=== PATIENT | female | born 1950 | race Caucasian/White ===

== ENCOUNTER 2016-10-15 06:32 | Day surgery (SDC) | payer MEDICARE, OTHER ==
[~2016-10-15 06:32] MED LIST: BUPIVACAINE HCL 0.5 % INJ/PF 30 ML SDV ONE; CEFAZOLIN 1 GM/D5W RTU 1 GM/50 ML RTUPB IV PRN; DIPHENHYDRAMINE HCL 50 MG/ML VIAL ONE; FENTANYL CITRATE INJ/PF 100 MCG/2 ML AMPUL ONE; KETOROLAC TROMETHAMINE 60 MG/2 ML SDV ONE; LIDOCAINE 2% INJ (20 MG/ML) 20 ML MDV ONE; LIDOCAINE 2% INJ-PF (20 MG/ML) 10 ML AMPUL ONE; MIDAZOLAM 2 MG/2 ML INJ ONE; PROPOFOL INJ 200 MG/20 ML VIAL IV ONE
[2016-10-15] MEDS ORDERED: SUCCINYLCHOLINE CHLORIDE INJ 200 MG/10 ML VIAL ONE (06:44)
[2016-10-15] MEDS ORDERED: BUPIVACAINE HCL 0.5 % INJ/PF 30 ML SDV ONE (07:08)
[2016-10-15] MEDS ORDERED: POLYMYXIN B SULFATE INJ 500000 UNIT VIAL ONE (07:08)
[2016-10-15] MEDS ORDERED: LIDOCAINE 2% INJ (20 MG/ML) 20 ML MDV ONE (07:08)
[2016-10-15] MEDS ORDERED: NORMAL SALINE INJ/PF 0.9% 10 ML SDV ONE (07:09)
[2016-10-15] MEDS ORDERED: BACITRACIN INJ 50,000 UNIT VIAL ONE (07:09)
[2016-10-15] MEDS ORDERED: ONDANSETRON HCL INJ/PF 4 MG/2 ML SDV ONE (07:36)
[2016-10-15] MEDS ORDERED: BUPIVACAINE INJ/PF LIPOSOME/PF 266 MG/20 ML SDV ONE ×2 (07:37→09:39)
[2016-10-15] MEDS ORDERED: FENTANYL CITRATE INJ/PF 100 MCG/2 ML AMPUL ONE (07:37)
--- NOTE | 2016-10-15 10:54 | [facility] DISCHARGE SUMMARY E ---
[facility] Discharge Summary NAME: PATRICE FLOWERS AGE: 66Y ADMITTED: 10/15/2016 DISCHARGED: 10/15/2016 SURGICAL PROCEDURES: 1. Correction of bunion by Luther osteotomy with internal screw fixation, left foot. 2. Marvel osteotomy with internal screw fixation, second metatarsal left foot. 3. Arthroplasty at the proximal interphalangeal joint, second digit left foot. POSTOPERATIVE DIAGNOSES: 1. Hallux abductovalgus, left foot. 2. Metatarsalgia, second metatarsal left foot. 3. Hammertoe deformity, second digit left foot. SURGEON: Armand Maria DPM SITE DIRECTOR: Ford Hart DPM Patient was admitted to [facility] with a chief complaint of a painful bunion and a second toe that stuck up and hit the top of her shoes. The patient said she has had these deformities for a number of years, that the pain was progressively getting worse, and that she knew it was about time she did something about it. The patient desired to have these problems surgically corrected. She underwent the above surgical procedures without any complications and was transferred to the recovery room. She was discharged with a surgical shoe and ice pack postoperative instructions, including no weight bearing on the surgical foot, and postoperative prescriptions for Dilaudid 4 mg #48, Phenergan 25 mg #24, and cephalexin 500 mg #4. She was given a followup appointment in the doctor's office in 1 week and the patient was discharged from [facility]. DICTATING PHYSICIAN: ARMAND MARIA D.P.M. [id number] PHY#: [id number] ID: [id number] JOB#: [id number] ACCT: [id number] cc:ARMAND MARIA DPM > DELVIN
--- NOTE | 2016-10-15 11:53 | [facility] OPERATIVE REPORT E ---
[facility] Operative Report NAME: PATRICE FLOWERS AGE: 66Y DATE OF SURGERY: 10/15/2016 ROOM: PREOPERATIVE DIAGNOSES: 1. Hallux abductovalgus, left foot. 2. Metatarsalgia, second metatarsal, left foot. 3. Hammertoe deformity, second digit, left foot. POSTOPERATIVE DIAGNOSIS: 1. Hallux abductovalgus, left foot. 2. Metatarsalgia, second metatarsal, left foot. 3. Hammertoe deformity, second digit, left foot. SURGICAL PROCEDURE: 1. Correction of bunion by Luther osteotomy with internal screw fixation, left foot. 2. Marvel osteotomy with internal screw fixation, second metatarsal, left foot. 3. Arthroplasty at the proximal interphalangeal joint, second digit, left foot. SURGEON: ARMAND WILL DPM CHILD & ADOLESCENT PSYCHIATRIST: Ford Hart DPM ANESTHESIA: General. PROCEDURE: Following induction of general anesthesia the left foot and leg were prepped and draped in the usual sterile manner. A pneumatic tourniquet was placed around the left ankle and inflated to 250 mmHg after exsanguination of the limb via Esmarch bandage. The left foot was then locally anesthetized utilizing approximately 17 mL of a 50/50 mixture of 0.5% Marcaine and 1% Xylocaine. The following surgical procedures were then performed: 1. Correction of bunion by Luther osteotomy with internal screw fixation, left foot: Attention was directed to the dorsal aspect of the first metatarsophalangeal joint of the left foot where an approximately 6-cm dorsolinear incision was made. The incision was deepened via sharp dissection. All bleeders were clamped and then Bovied as necessary for the purposes of hemostasis. A capsular incision was made in the same manner as the original skin incision and it was made medial to the extensor hallucis longus tendon. When the capsular incision was made it was noted that a gelatinous fluid oozed out of the joint. The capsule was then reflected medially and laterally from the bone. Attention was directed to the first intermetatarsal space. Utilizing blunt dissection, the transverse adductor tendon was identified and sharply incised. Attention was directed back to the medial aspect of the first metatarsal head. Utilizing a [employer] sagittal saw the hypertrophied medial eminence was osteotomized parallel to the long axis of the bone. It was noted there was a small bone cyst at the medial aspect of the bone and another small wedge of bone was removed so that when the osteotomy was performed it would be performed in a good solid bone. It was noted that there was hypertrophied bone along the base of the proximal phalanx. Utilizing a rongeur this hypertrophied lip of bone was removed. It was also noted that there was hypertrophied bone at the dorsal aspect of the first metatarsal head, and this was also removed utilizing a rongeur. Attention was then directed back to the medial aspect of the first metatarsal head, and utilizing a [email or web address] sagittal saw an Luther-type osteotomy was performed with the apex being distal and the wings at an approximately 60-degree angle, one plantar, one dorsal. This was a salnuxb-hcv-akotzoq osteotomy cut. The capital fragment was then distracted, shifted laterally approximately 5 cm and then impacted on the bone. The osteotomy was temporarily fixated utilizing a 0.045 guidewire. The reamer measure was then threaded down the guidewire and a hole was reamed to accept the head of the screw and the length of the screw needed was measured to be a 30-mm cancellous 3.0 screw. An x-ray was taken to make sure that the guidewire was in good position. The distal aspect of the osteotomy was then drilled utilizing a 2-mm drill bit. A 30-mm x 3.0 cancellous screw was then threaded down the guidewire and tightened until the osteotomy was stably fixated and the screw was tight. The guidewire was then removed. An x-ray was taken and it was noted that at least 2 threads of the screw had broken through the plantar cortex and that the first metatarsophalangeal joint was in a more anatomically correct position. The redundant bone on the medial aspect of the first metatarsal was then osteotomized parallel to the long axis of the bone and removed from the wound. The area was then rasped utilizing a [email or web address] Cross Cut rasp. The area was then flushed with copious amounts of antibacterial saline solution. Bone wax was then applied to the medial aspect of the first metatarsal and the dorsal aspect of the head of the first metatarsal and the base of the proximal phalanx. The capsule was then coaptated and maintained utilizing simple interrupted sutures of 3-0 Vicryl. The extensor hallucis longus tendon was then tacked medially utilizing simple interrupted sutures of 3-0 Vicryl. The subcutaneous tissue was coaptated and maintained utilizing simple interrupted sutures of 4-0 Vicryl. Exparel was then injected subcutaneously along the length of the incision of the first metatarsal. Then, the skin was coaptated and maintained utilizing horizontal mattress sutures of 5-0 nylon. 2. Marvel osteotomy with internal screw fixation, second metatarsal, left foot: Attention was directed to the dorsal aspect of the second metatarsal of the left foot where an approximately 3-cm dorsolinear incision was made. The incision was deepened via sharp dissection. All bleeders were clamped and Bovied as necessary for the purposes of hemostasis. The extensor digitorum longus tendon was freed from the capsule and retracted laterally. A capsule incision was then made in the same manner as the original skin incision. The capsule was freed medially and laterally from the second metatarsal. The second metatarsal head was inspected. It was noted there was a small erosion in the cartilage of the head of the second metatarsal along the lateral aspect, and this was smoothed utilizing a [employer] Cross Cut rasp. A Marvel osteotomy was then performed. This was made from dorsal distal to plantar proximal. This allowed the head then to shift plantarly and proximally. The redundant bone at the dorsal aspect of the metatarsal was then removed utilizing a rongeur. The osteotomy was then fixated utilizing a 12-mm, 2.0 QuickFix screw. An x-ray was taken. It was noted that the second metatarsal was now in line with the third metatarsal and that the screw was in good position and that the second metatarsophalangeal joint was in a more anatomically correct position. The area was then flushed with copious amounts of antibacterial saline solution. The capsule was then coaptated and maintained utilizing simple interrupted sutures of 3-0 Vicryl. The extensor digitorum longus tendon was then lengthened utilizing a Z-plasty slide and then sutured with 3-0 Vicryl. The subcutaneous tissue was then coaptated and maintained utilizing simple interrupted sutures of 4-0 Vicryl, and the skin was coaptated and maintained utilizing horizontal mattress sutures of 5-0 nylon. This site was also injected with Exparel. 3. Arthroplasty of the proximal interphalangeal joint, second digit, left foot: Attention was directed to the dorsal aspect of the second digit of the left foot where an approximately 2-cm dorsolinear incision was made. The incision was deepened via sharp dissection. All bleeders were clamped and Bovied as necessary for the purposes of hemostasis. The extensor digitorum longus tendon was transversely incised and reflected proximally and distally from the bone. The hypertrophied head of the proximal phalanx was freed from off its soft tissue attachments via sharp dissection. Utilizing a [email or web address] sagittal saw hypertrophied head of the proximal phalanx was osteotomized perpendicular to the long axis of the bone and removed en toto from the wound. The plantar plate was excised utilizing sharp dissection. The area was then flushed with copious amounts of an antibacterial saline solution. The distal flap of the extensor digitorum longus tendon was then sutured over the base of the middle phalanx and sutured into the long flexor tendon utilizing simple interrupted suture of 3-0 Vicryl. The extensor digitorum longus tendon was then coaptated and maintained utilizing simple interrupted sutures of 3-0 Vicryl. The skin was then coaptated and maintained utilizing horizontal mattress sutures of 5-0 nylon. The dry sterile dressing was then applied consisting of Herbert silk, 4 x 4s, Conform, Kerlix and Coban. The pneumatic tourniquet was released. It was noted that all digits were warm and viable, and the patient was transferred to the recovery room. DICTATING PHYSICIAN: ARMAND WILL D.P.M. [id number] PHY#: [id number] ID: [id number] JOB#: [id number] ACCT: [id number] cc:ARMAND WILL DPM > DELVIN
--- NOTE | 2016-10-15 15:33 | RADIOLOGY REPORT (SQ) ---
EXAM DESCRIPTION: FOOT LEFT 2 VIEWS; NO CHG FLUORO COMPLETED DATE/TIME: 10/15/2016 3:14 pm REASON FOR STUDY: LT FOOT BUNIONECTOMY M20.12 HALLUX VALGUS (ACQUIRED), LEFT FOOT M77.42 METATARSA LGIA, LEFT FOOT COMPARISON: None. NUMBER OF VIEWS: Two views. TECHNIQUE: AP and lateral radiographic images acquired of the left foot. RADIATION DOSE: 0.2 seconds total exposure LIMITATIONS: None. FINDINGS: MINERALIZATION: Normal. BONES: Osteotomy changes are seen involving the distal 1st metatarsal. A long cannulated screw is pr esent. There is a screw that passes through the head of the 2nd metatarsal on the AP direction. JOINTS: No effusions. SOFT TISSUES: No soft tissue swelling. No foreign body. OTHER: No other significant finding. IMPRESSION: Surgical changes. TECHNICAL DOCUMENTATION: JOB ID: [id number] [employer]- All Rights Reserved
--- NOTE | 2016-10-15 15:33 | RADIOLOGY REPORT (SQ) ---
EXAM DESCRIPTION: FOOT LEFT 2 VIEWS; NO CHG FLUORO COMPLETED DATE/TIME: 10/15/2016 3:14 pm REASON FOR STUDY: LT FOOT BUNIONECTOMY M20.12 HALLUX VALGUS (ACQUIRED), LEFT FOOT M77.42 METATARSA LGIA, LEFT FOOT COMPARISON: None. NUMBER OF VIEWS: Two views. TECHNIQUE: AP and lateral radiographic images acquired of the left foot. RADIATION DOSE: 0.2 seconds total exposure LIMITATIONS: None. FINDINGS: MINERALIZATION: Normal. BONES: Osteotomy changes are seen involving the distal 1st metatarsal. A long cannulated screw is pr esent. There is a screw that passes through the head of the 2nd metatarsal on the AP direction. JOINTS: No effusions. SOFT TISSUES: No soft tissue swelling. No foreign body. OTHER: No other significant finding. IMPRESSION: Surgical changes. TECHNICAL DOCUMENTATION: JOB ID: [id number] [employer]- All Rights Reserved
== END 2016-10-15 11:34 | disposition home or self-care (01) ==
LOC: SC 06:32
PROVIDERS: ATTEND Podiatrist Foot Surgery
PROC: 0QBP0ZZ Excision of Left Metatarsal, Open Approach (ICD-10-PCS; 2016-10-15)
PROC: 0SRQ0JZ Replacement of Left Toe Phalangeal Joint with Synthetic Substitute, Open Approach (ICD-10-PCS; 2016-10-15)
PROC: 0QSP04Z Reposition Left Metatarsal with Internal Fixation Device, Open Approach (ICD-10-PCS; principal; 2016-10-15 07:30)
DX: M20.12 Hallux valgus (acquired), left foot (principal); M77.42 Metatarsalgia, left foot; M20.42 Other hammer toe(s) (acquired), left foot; Z79.899 Other long term (current) drug therapy
CPT/HCPCS: 28308; 28296; 73620; 28285; C1713 ×2; C1769; J2250; J3490 ×5; J0690; J1200; J1885; J3010; J0330; J2405; J2704; C9290; 01480

== ENCOUNTER → 2017-02-09 | Outpatient (CLI) | payer MEDICARE, OTHER ==
--- NOTE | 2017-02-09 17:21 | RADIOLOGY REPORT (SQ) ---
EXAM DESCRIPTION: CHEST PA/LATERAL COMPLETED DATE/TIME: 02/09/2017 5:15 pm REASON FOR STUDY: ACUTE BRONCHITIS, UNSPECIFIED COMPARISON: None. EXAM PARAMETERS: NUMBER OF VIEWS: two views TECHNIQUE: Digital Frontal and Lateral radiographic views of the chest acquired. RADIATION DOSE: NA LIMITATIONS: none FINDINGS: LUNGS AND PLEURA: No opacities, masses or pneumothorax. No pleural effusion. MEDIASTINUM AND HILAR STRUCTURES: No masses or contour abnormalities. HEART AND VASCULAR STRUCTURES: Heart normal size. No evidence for failure. BONES: No acute findings. HARDWARE: None in the chest. OTHER: No other significant finding. IMPRESSION: NO SIGNIFICANT RADIOGRAPHIC FINDING IN THE CHEST. TECHNICAL DOCUMENTATION: JOB ID: [id number] [employer]- All Rights Reserved
== END ==
LOC: OD 17:03
PROVIDERS: ATTEND Family Medicine Geriatric Medicine
DX: J20.9 Acute bronchitis, unspecified (principal)
CPT/HCPCS: 71020

== ENCOUNTER → 2018-06-21 | Outpatient (CLI) | payer MEDICARE, OTHER ==
[2018-06-21 10:10] LABS: ABSOLUTE BASOPHILS # (AUTO) 0.1 10^3/uL (0.0-0.2); ABSOLUTE EOSINOPHILS # (AUTO) 0.1 10^3/uL (0.0-0.6); ABSOLUTE LYMPHOCYTES (AUTO) 1.2 10^3/uL (0.5-4.7); ABSOLUTE MONOCYTES (AUTO) 0.4 10^3/uL (0.1-1.4); BASOPHILS % (AUTO) 0.8 % (0-2); EOSINOPHILS % (AUTO) 1.5 % (0-6); HEMATOCRIT 43.3 % (36.0-47.0); HEMOGLOBIN 14.9 g/dL (12.0-15.5); LYMPHOCYTES % (AUTO) 18.2 % (13-45); MEAN CORPUSCULAR HEMOGLOBIN 31.1 pg (27.0-33.4); MEAN CORPUSCULAR HGB CONC 34.4 g/dL (32.0-36.0); MEAN CORPUSCULAR VOLUME 90 fl (80-97); MONOCYTES % (AUTO) 6.2 % (3-13); PLATELET COUNT 271 10^3/uL (150-450); RED BLOOD COUNT 4.79 10^6/uL (3.72-5.28); RED CELL DISTRIBUTION WIDTH 13.2 % (11.5-14.0); SEGMENTED NEUTROPHILS % (AUTO) 73.3 % (42-78); TOTAL CELLS COUNTED % (AUTO) 100 %; WHITE BLOOD COUNT 6.8 10^3/uL (4.0-10.5)
[2018-06-21 10:37] LABS: ALANINE AMINOTRANSFERASE 30 U/L (9-52); ALBUMIN 4.3 g/dL (3.5-5.0); ALKALINE PHOSPHATASE 85 U/L (38-126); ANION GAP 8 (5-19); ASPARTATE AMINO TRANSFERASE 24 U/L (14-36); BILIRUBIN,DIRECT 0.1 mg/dL (0.0-0.4); BILIRUBIN,TOTAL 0.5 mg/dL (0.2-1.3); BLOOD UREA NITROGEN 22 mg/dL (7-20); CALCIUM 9.3 mg/dL (8.4-10.2); CARBON DIOXIDE 30 mmol/L (22-30); CHLORIDE 104 mmol/L (98-107); CHOLESTEROL 207.95 mg/dL (0-200); GLUCOSE 103 mg/dL (75-110); POTASSIUM 4.3 mmol/L (3.6-5.0); SODIUM 141.7 mmol/L (137-145); TOTAL PROTEIN 6.8 g/dL (6.3-8.2); TRIGLYCERIDES 58 mg/dL (<150)
[2018-06-21 10:47] LABS: DIRECT LDL 100 mg/dL (<100)
== END ==
LOC: OD 09:46
PROVIDERS: ATTEND Internal Medicine
DX: E78.5 Hyperlipidemia, unspecified (principal); I10 Essential (primary) hypertension; K21.9 Gastro-esophageal reflux disease without esophagitis; R53.83 Other fatigue
CPT/HCPCS: 36415; 80053; 80061; 84443; 85025

== ENCOUNTER 2018-12-14 08:35 | Day surgery (SDC) | payer MEDICARE ==
[~2018-12-14 08:35] MED LIST changes: -BUPIVACAINE HCL 0.5 % INJ/PF 30 ML SDV ONE; -CEFAZOLIN 1 GM/D5W RTU 1 GM/50 ML RTUPB IV PRN; -DIPHENHYDRAMINE HCL 50 MG/ML VIAL ONE; -FENTANYL CITRATE INJ/PF 100 MCG/2 ML AMPUL ONE; +KETOROLAC TROMETHAMINE 0.45% 4 DROP/0.4 ML DROPERETTE OD PRN; -KETOROLAC TROMETHAMINE 60 MG/2 ML SDV ONE; -LIDOCAINE 2% INJ (20 MG/ML) 20 ML MDV ONE; -LIDOCAINE 2% INJ-PF (20 MG/ML) 10 ML AMPUL ONE; -MIDAZOLAM 2 MG/2 ML INJ ONE; -PROPOFOL INJ 200 MG/20 ML VIAL IV ONE
[2018-12-14] MEDS ORDERED: MIDAZOLAM 2 MG/2 ML INJ ONE (09:23)
[2018-12-14] MEDS: CYCLOPENTOLATE 0.2%/PHENYLEPHRINE 1% OPH SOLN 2 ML OD PRN ×3 (09:52→10:12)
[2018-12-14] MEDS: TROPICAMIDE 1% OPH SOLN 3 ML OD PRN ×3 (09:52→10:12)
[2018-12-14] MEDS: TETRACAINE HCL 0.5% OPH SOLN 4 ML OD PRN ×4 (09:52→10:27)
[2018-12-14] MEDS: BESIFLOXACIN HCL 0.6% OPH SUSP 5 ML BOTTLE OD PRN ×4 (09:53→10:48)
[2018-12-14] MEDS: LIDOCAINE 4% INJ/PF (40 MG/ML) 5 ML AMPUL OD PRN ×2 (10:29)
[2018-12-14] MEDS: BUPIVACAINE HCL 0.75% INJ/PF (7.5 MG/1 ML) 10 ML SDV OD PRN ×2 (10:29)
[2018-12-14] MEDS: EPINEPHRINE INJ/PF 1 MG/1 ML AMPULE ONE ×2 (10:41)
[2018-12-14] MEDS: CHONDR SU A NA/HYALUR INTRAOC KIT (SURGICARE) ONE ×2 (10:41)
[2018-12-14] MEDS: LIDOCAINE 1% INJ-PF (10 MG/ML) 30 ML SDV ONE ×2 (10:44)
[2018-12-14] MEDS: DORZOLAMIDE HCL 2%/TIMOLOL MALEAT 0.5% OPH SOLN 10 ML OD PRN ×2 (10:48)
--- NOTE | 2018-12-14 13:17 | PDOC DISCHARGE SUMMARY ---
Discharge Summary-[facility] Discharge Summary: DATE: December 14, 2018 FINAL DIAGNOSIS: CATARACT, RIGHT EYE PROCEDURE: Cataract extraction with Symfony intraocular lens implant right eye HOSPITAL COURSE: The patient will be discharged to home. The patient is instructed to resume preoperative medications, take Tylenol as needed for discomfort, to keep the eye shielded, They should use the prescribed antibiotic, NSAID, and steroid at 3 PM and 8 PM., and to follow up in my office in 1 day.
--- NOTE | 2018-12-14 13:17 | Operative Report ---
Operative Report-[facility] Operative Report: DATE OF SURGERY: December 14, 2018 PREOPERATIVE DIAGNOSIS: CATARACT, RIGHT EYE. POSTOPERATIVE DIAGNOSIS: CATARACT, RIGHT EYE. PROCEDURE PERFORMED: PHACOEMULSIFICATION WITH POSTERIOR CHAMBER INTRAOCULAR LENS, RIGHT EYE. Intraocular Lens Model : Symphony multifocal ZXR00 24.5 Total Phaco Time: 5.8 CDE SURGEON: ENRIKE WHITNEY MD ANESTHESIA: TOPICAL WITH MAC. INDICATIONS FOR SURGERY: Difficulty reading road signs. PROCEDURE: The patient was brought to the Operating Room and placed on the operative table. Following tetracaine drops, topical anesthesia was administered. This consisted of instrument wipe pledgets soaked in a solution of 4% Xylocaine mixed with 0.75% Marcaine in a 1:2 ratio. A 2 x 1 cm pledget was placed in the superior fornix. A 1 x 1 cm pledget was placed in the inferior fornix. The eye was patched shut for 5 minutes. The patch was removed. The eye was sterilely prepped and draped in the usual manner. Lid speculum was placed in the eye. The pledgets were removed. 4-0 black silk sutures were placed around the superior and the inferior rectus muscles to be used as traction. A conjunctival peritomy was made at the 10 o'clock position. Hemostasis was obtained with bipolar cautery. A posterior limbal groove was created using a crescent knife and dissected anteriorly towards the cornea. A sharp point blade was used to create a paracentesis site at the 2 o'clock position. 0.2 cc non preserved Lidocaine was injected into the anterior chamber. A 2.4 mm keratome was used to enter the anterior chamber through the groove. Viscoelastic was injected into the anteriorchamber. An anterior capsulotomy was performed using Utrata forceps in a capsulorrhexis fashion. Hydrodissection and hydrodelineation were performed. Phacoemulsification was performed in vvsrmb-zoz-uwnobdj technique. Following this, the I/A unit was used to remove residual cortex. Viscoelastic was injected into the capsular bag. The Intraocular lens was placed in the capsular bag. The I/A unit was used to remove residual viscoelastic. The wound was seen to be watertight under high and low pressure, and no sutures were placed. The intraocular lens was well centered. The pressure was adjusted in the eye to normal pressure. The 4-0 black silk sutures and lid speculum were removed. The eye was shielded after Besivance and Cosopt drops were placed. The patient tolerated the procedure well and was sent to the Recovery Room in good condition.
== END 2018-12-14 11:37 | disposition home or self-care (01) ==
LOC: SC 08:35
PROVIDERS: ATTEND Ophthalmology
DX: H25.813 Combined forms of age-related cataract, bilateral (principal); H43.812 Vitreous degeneration, left eye; D31.32 Benign neoplasm of left choroid; H04.123 Dry eye syndrome of bilateral lacrimal glands; I48.92 Unspecified atrial flutter
CPT/HCPCS: 66984; J2250; J3490 ×5; A9270; J0171; V2788

== ENCOUNTER 2018-12-28 08:46 | Day surgery (SDC) | payer MEDICARE ==
[~2018-12-28 08:46] MED LIST changes: +FENTANYL CITRATE INJ/PF 100 MCG/2 ML AMPUL ONE; -KETOROLAC TROMETHAMINE 0.45% 4 DROP/0.4 ML DROPERETTE OD PRN; +KETOROLAC TROMETHAMINE 0.45% 4 DROP/0.4 ML DROPERETTE OS PRN; +MIDAZOLAM 2 MG/2 ML INJ ONE
[2018-12-28] MEDS: TROPICAMIDE 1% OPH SOLN 3 ML OS PRN ×3 (10:04→10:24)
[2018-12-28] MEDS: BESIFLOXACIN HCL 0.6% OPH SUSP 5 ML BOTTLE OS PRN ×4 (10:04→11:13)
[2018-12-28] MEDS: CYCLOPENTOLATE 0.2%/PHENYLEPHRINE 1% OPH SOLN 2 ML OS PRN ×3 (10:04→10:24)
[2018-12-28] MEDS: TETRACAINE HCL 0.5% OPH SOLN 4 ML OS PRN ×4 (10:05→10:51)
[2018-12-28] MEDS: LIDOCAINE 4% INJ/PF (40 MG/ML) 5 ML AMPUL OS PRN ×2 (10:53)
[2018-12-28] MEDS: BUPIVACAINE HCL 0.75% INJ/PF (7.5 MG/1 ML) 10 ML SDV OS PRN ×2 (10:53)
[2018-12-28] MEDS: EPINEPHRINE INJ/PF 1 MG/1 ML AMPULE ONE ×2 (11:01)
[2018-12-28] MEDS: LIDOCAINE 1% INJ-PF (10 MG/ML) 30 ML SDV ONE ×2 (11:01)
[2018-12-28] MEDS: CHONDR SU A NA/HYALUR INTRAOC KIT (SURGICARE) ONE ×2 (11:01)
[2018-12-28] MEDS: DORZOLAMIDE HCL 2%/TIMOLOL MALEAT 0.5% OPH SOLN 10 ML OS PRN ×2 (11:13)
--- NOTE | 2018-12-28 14:11 | Operative Report ---
Operative Report-[facility] Operative Report: DATE OF SURGERY: 12/28/2018 PREOPERATIVE DIAGNOSIS: CATARACT, LEFT EYE. POSTOPERATIVE DIAGNOSIS: CATARACT, LEFT EYE. PROCEDURE PERFORMED: PHACOEMULSIFICATION WITH POSTERIOR CHAMBER INTRAOCULAR LENS, LEFT EYE. Intraocular Lens Model : ZX R00 25.0 Total Phaco Time: 3.58 CDE SURGEON: ENRIKE WHITNEY MD ANESTHESIA: TOPICAL WITH MAC. INDICATIONS FOR SURGERY: Difficultly driving at night and reading small print PROCEDURE: The patient was brought to the Operating Room and placed on the operative table. Following tetracaine drops, topical anesthesia was administered. This consisted of instrument wipe pledgets soaked in a solution of 4% Xylocaine mixed with 0.75% Marcaine in a 1:2 ratio. A 2 x 1 cm pledget was placed in the superior fornix. A 1 x 1 cm pledget was placed in the inferior fornix. The eye was patched shut for 5 minutes. The patch was removed. The eye was sterilely prepped and draped in the usual manner. Lid speculum was placed in the eye. The pledgets were removed. 4-0 black silk sutures were placed around the superior and the inferior rectus muscles to be used as traction. A conjunctival peritomy was made at the 10 o'clock position. Hemostasis was obtained with bipolar cautery. A posterior limbal groove was created using a crescent knife and dissected anteriorly towards the cornea. A sharp point blade was used to create a paracentesis site at the 2 o'clock position. 0.2 cc non preserved Lidocaine was injected into the anterior chamber. A 2.4 mm keratome was used to enter the anterior chamber through the groove. Viscoelastic was injected into the anterior chamber. An anterior capsulotomy was performed using Utrata forceps in a capsulorrhexis fashion. Hydrodissection and hydrodelineation were performed. Phacoemulsification was performed in eowdwg-dwa-yggvmal technique. Following this, the I/A unit was used to remove residual cortex. Viscoelastic was injected into the capsular bag. The Intraocular lens was placed in the capsular bag. The I/A unit was used to remove residual viscoelastic. The wound was seen to be watertight under high and low pressure, and no sutures were placed. The intraocular lens was well centered. The pressure was adjusted in the eye to normal pressure. The 4-0 black silk sutures and lid speculum were removed. The eye was shielded after Besivance and Cosopt drops were placed. The patient tolerated the procedure well and was sent to the Recovery Room in good condition.
--- NOTE | 2018-12-28 14:12 | PDOC DISCHARGE SUMMARY ---
Discharge Summary-[facility] Discharge Summary: DATE: 12/28/2018 FINAL DIAGNOSIS: CATARACT, LEFT EYE PROCEDURE: Cataract extraction with Symfony intraocular lens implant left eye HOSPITAL COURSE: The patient will be discharged to home. The patient is instructed to resume preoperative medications, take Tylenol as needed for discomfort, to keep the eye shielded, They should use the prescribed antibiotic, NSAID, and steroid at 3 PM and 8 PM, and to follow up in my office in 1 day.
== END 2018-12-28 11:46 | disposition home or self-care (01) ==
LOC: SC 08:46
PROVIDERS: ATTEND Ophthalmology
DX: H25.812 Combined forms of age-related cataract, left eye (principal); Z96.1 Presence of intraocular lens
CPT/HCPCS: 66984; 00142; V2788; J2250; J3490 ×5; A9270; J0171; J3010; 142

== ENCOUNTER → 2019-10-03 | Outpatient (CLI) | payer MEDICARE ==
[2019-10-03 09:33] LABS: ABSOLUTE EOSINOPHILS # (AUTO) 0.1 10^3/uL (0.0-0.6); ABSOLUTE MONOCYTES (AUTO) 0.4 10^3/uL (0.1-1.4); ABSOLUTE NEUT (AUTO) 3.7 10^3/uL (1.7-8.2); BASOPHILS % (AUTO) 0.9 % (0-2); EOSINOPHILS % (AUTO) 2.3 % (0-6); HEMATOCRIT 42.8 % (36.0-47.0); HEMOGLOBIN 14.6 g/dL (12.0-15.5); LYMPHOCYTES % (AUTO) 18.9 % (13-45); MEAN CORPUSCULAR HEMOGLOBIN 31.2 pg (27.0-33.4); MEAN CORPUSCULAR HGB CONC 34.2 g/dL (32.0-36.0); MEAN CORPUSCULAR VOLUME 91 fl (80-97); MONOCYTES % (AUTO) 6.9 % (3-13); PLATELET COUNT 285 10^3/uL (150-450); RED CELL DISTRIBUTION WIDTH 13.6 % (11.5-14.0); TOTAL CELLS COUNTED % (AUTO) 100 %; WHITE BLOOD COUNT 5.3 10^3/uL (4.0-10.5)
[2019-10-03 09:55] LABS: ALBUMIN 4.3 g/dL (3.5-5.0); ALKALINE PHOSPHATASE 84 U/L (38-126); ANION GAP 8 (5-19); ASPARTATE AMINO TRANSFERASE 26 U/L (14-36); BILIRUBIN,TOTAL 0.6 mg/dL (0.2-1.3); BLOOD UREA NITROGEN 24 mg/dL (7-20); CALCIUM 9.2 mg/dL (8.4-10.2); CARBON DIOXIDE 25 mmol/L (22-30); CHLORIDE 105 mmol/L (98-107); CHOLESTEROL 216.75 mg/dL (0-200); GLUCOSE 91 mg/dL (75-110); POTASSIUM 4.6 mmol/L (3.6-5.0); TOTAL PROTEIN 7.4 g/dL (6.3-8.2); TRIGLYCERIDES 102 mg/dL (<150)
[2019-10-03 10:06] LABS: DIRECT LDL 116 mg/dL (<100)
== END ==
LOC: OD 08:31
PROVIDERS: ATTEND Internal Medicine
DX: I10 Essential (primary) hypertension (principal); E78.5 Hyperlipidemia, unspecified; I48.91 Unspecified atrial fibrillation; M19.90 Unspecified osteoarthritis, unspecified site
CPT/HCPCS: 36415; 80053; 80061; 84443; 85025

== ENCOUNTER 2019-11-22 10:03 | Day surgery (SDC) | payer MEDICARE ==
[~2019-11-22 10:03] MED LIST changes: +BALANCED SALT IRRIG SOLN COMB2 15 ML BOTTLE ONE; +BUPIVACAINE HCL 0.75% INJ/PF (7.5 MG/1 ML) 10 ML SDV ONE; -KETOROLAC TROMETHAMINE 0.45% 4 DROP/0.4 ML DROPERETTE OS PRN; +LIDOCAINE 2%/EPINEPHRINE INJ 20 ML VIAL ONE; +POVIDONE-IODINE 5% OPH PREP SOLN 30 ML ONE; +PROPOFOL INJ 200 MG/20 ML VIAL IV ONE; +TETRACAINE HCL 0.5% OPH SOLN 4 ML ONE; +THROMBIN (BOVINE) TOPICAL 5000 UNIT VIAL ONE; +TOBRAMYCIN SULFATE/DEXAMETH OPH OINTMENT 3.5 GM ONE
[2019-11-22] MEDS ORDERED: ONDANSETRON HCL INJ/PF 4 MG/2 ML SDV ONE (10:55)
[2019-11-22] MEDS: NEO/POLYMYX B SULF/DEXAMETH OPH OINTMENT 3.5 GM ONE ×2 (11:50→12:19)
--- NOTE | 2019-11-22 12:22 | Operative Report ---
Operative Report-[facility] Operative Report: DATE OF SURGERY: 11/22/2019 PREOPERATIVE DIAGNOSIS: Bilateral upper eyelid Dermatochalasis with visual field loss POSTOPERATIVE DIAGNOSIS: Bilateral upper eyelid Dermatochalasis with visual field loss PROCEDURE PERFORMED: Bilateral upper eyelid blepharoplasty SURGEON: Nora Aceves MD ANESTHESIA: Local with MAC INDICATION FOR SURGERY: Eyelids interfering with upper vision and difficulty keeping eyelids open PROCEDURE: The patient was brought to the operating room and both upper eyelids were sterilely prepped and draped in the usual manner. Tetracaine drops were placed in the eyes. Attention was directed to both upper lids where the upper lid crease was marked and 0.3 mm forceps were used to estimate the excess upper eyelid skin to be excised. This was marked in an elliptical fashion. Local anesthesia was administered. This consisted of 2% Xylocaine with epinephrine mixed with 0.75% Marcaine. Approximately 2.5 mL's of this was used to infiltrate both upper eyelids in the previous marked areas and the local anesthetic was diffuse with a Q-tip. Attention was directed to the left upper lid where the elliptical of skin was removed. Hemostasis was obtained with bipolar cautery. The orbital septum was opened and prolapse retroseptal fat was grasped with a hemostat, cut and cauterized. Thrombin soaked on a pad was placed on the incision. Identical procedure was performed on the right upper lid. Wound closure was completed with 3 interrupted 6-0 silk sutures, equally spaced thro ugh both upper lids, taking a deep bite of the fascia. This was followed by a running 6-0 nylon suture. There was full closure of the lids and good hemostasis at the end of the surgery. Maxitrol ointment was placed on both upper lids. Patient tolerated procedure well and sent to recovery room and in good condition.
[2019-11-22] MEDS ORDERED: PROPOFOL INJ 200 MG/20 ML VIAL IV ONE (12:26)
== END 2019-11-22 13:11 | disposition home or self-care (01) ==
LOC: SC 10:03
PROVIDERS: ATTEND Ophthalmology
DX: H02.831 Dermatochalasis of right upper eyelid (principal); H02.834 Dermatochalasis of left upper eyelid; Z03.818 Encounter for observation for suspected exposure to other biological agents ruled out
CPT/HCPCS: 15823; U0003; J2250; J3490 ×6; A9270; J2405; J2704; C9803; 87635; J3010